=== PATIENT | female | born 1980 | race Caucasian/White ===

== ENCOUNTER 2017-02-18 02:50 | Observation (INO) | payer OTHER ==
[~2017-02-18] VITALS: Ht 165.1 cm; Wt 66.6 kg
[~2017-02-18 02:50] MED LIST: Feosol PO; MOTRIN800 MG PO; Motrin PO; NOHOMEMEDS; Percocet 5/325,Endoc PO
[2017-02-18 03:50] LABS: HEMATOCRIT 43.7 % (36.0-46.0); MCH 31.3 PG (29.0-34.0); MEAN PLAT.VOLUME 11.6 uM^3 (9.5-12.4); PLATELET COUNT 198 K/uL (156-360); RBC DIS.WIDTH-CV 14.7 % (11.8-14.6); RBC DIS.WIDTH-SD 51.4 % (39-53); WHITE BLOOD COUNT 11.2 K/uL (4.1-10.2)
[2017-02-18 04:03] LABS: CHLORIDE 103 mEq/L (99-109); POTASSIUM 3.2 mEq/L (3.7-5.4); SODIUM 138 mEq/L (136-147)
[2017-02-18 04:06] LABS: GLUCOSE 136 mg/dL (70-99)
[2017-02-18 04:07] LABS: ANION GAP 12 MEQ/L (2-14)
[2017-02-18 04:08] LABS: TOTAL BILIRUBIN 0.5 mg/dL (0.0-1.0)
[2017-02-18 04:09] LABS: ALKALINE PHOSPHATASE 63 IU/L (3-129)
[2017-02-18 04:10] LABS: GFR ESTIMATE (CALCULATED) > 59 mL/min/
[2017-02-18 04:11] LABS: DIRECT BILIRUBIN 0.2 mg/dL (0.0-0.3); UREA NITROGEN (BUN) 17 mg/dL (9-23)
[2017-02-18 04:24] LABS: QUANTITATIVE HCG < 4.0 MIU/ML
[2017-02-18 05:23] LABS: ADD MIUA? YES; BILIRUBIN NEGATIVE; BLOOD MODERATE; COLOR YELLOW ((YELLOW)); GLUCOSE (STRIP) NEGATIVE; KETONES 20; LEUKOCYTES NEGATIVE; NITRITE NEGATIVE; PROTEIN (STRIP) NEGATIVE; SPECIFIC GRAVITY 1.024 (1.000-1.030); UROBILINOGEN 0.2 MG/DL (0.2-1.0)
[2017-02-18 05:55] LABS: AMORPHOUS PHOSPHATE CRYSTALS 3+; BACTERIA NONE SEEN /HPF; CASTS NONE SEEN /LPF; CRYSTALS PRESENT; EPITHELIAL CELLS RARE /HPF; MUCUS NONE SEEN /LPF; RED BLOOD CELLS RARE /HPF (0-5); UCUL ADDED? NO; WHITE BLOOD CELLS RARE /HPF (0-5)
[2017-02-18] MEDS ORDERED: DAILY VALUE1 EACH PO (08:51)
[2017-02-18] MEDS ORDERED: MELATONIN10 M1 PO (08:51)
[2017-02-18 11:47] VITALS: BP 125/26
[2017-02-18 16:30] VITALS: BP 121/65
[2017-02-18 19:56] VITALS: BP 121/79
[2017-02-18 23:23] VITALS: BP 113/70
[2017-02-19 03:25] VITALS: BP 110/58
[2017-02-19 07:39] VITALS: BP 128/80
[2017-02-19 07:55] LABS: EOSINOPHIL (%) 0.1 % (0-5); HEMATOCRIT 42.1 % (36.0-46.0); IMMATURE GRANULOCYTE (%) 0.4 % (0.0-0.7); IMMATURE GRANULOCYTE COUNT 0.1 K/uL; INSTRUMENT ABS NEUTROPHIL CT 11.5 K/uL; LYMPHOCYTE COUNT 1.3 K/uL (1.0-2.8); MCH 31.1 PG (29.0-34.0); MCHC 31.8 G/DL (30.0-36.0); MCV 97.7 FL (83-99); MEAN PLAT.VOLUME 12.1 uM^3 (9.5-12.4); MONOCYTE (%) 7.2 % (3-12); NEUTROPHIL (%) 83.1 % (45-76); NEUTROPHIL COUNT 11.5 K/uL (1.8-6.4); PLATELET COUNT 222 K/uL (156-360); RBC DIS.WIDTH-CV 15.1 % (11.8-14.6); RBC DIS.WIDTH-SD 54.8 % (39-53); RED BLOOD COUNT 4.31 M/uL (3.80-5.20); WHITE BLOOD COUNT 13.8 K/uL (4.1-10.2)
[2017-02-19 08:14] LABS: ALKALINE PHOSPHATASE 54 IU/L (3-129); ANION GAP 10 MEQ/L (2-14); CHLORIDE 105 MEQ/L (99-109); GFR ESTIMATE (CALCULATED) > 59 mL/min/; POTASSIUM 3.5 MEQ/L (3.7-5.4); SAMPLE HEMOLYSIS CHECK 0; SAMPLE ICTERIC CHECK 0; SAMPLE LIPEMIA CHECK 0; SODIUM 140 MEQ/L (136-147); TOTAL BILIRUBIN 0.5 MG/DL (0.0-1.0); UREA NITROGEN (BUN) 5 mg/dL (9-23)
[2017-02-19 08:15] LABS: GLUCOSE 101 mg/dL (70-99)
[2017-02-19] MEDS ORDERED: NORCO 5/3251 TABLET PO (10:21)
[2017-02-19 12:15] VITALS: BP 126/81
== END 2017-02-19 14:30 | disposition home or self-care (01) ==
LOC: EME 02:50 → EDOF 10:10 → 2EAST 10:10 → EDOF 10:10 → 2EAST 11:18
PROVIDERS: Surgery
PROC: 0FT44ZZ Resection of Gallbladder, Percutaneous Endoscopic Approach (ICD-10-PCS; principal; 2017-02-18)
DX: K80.00 Calculus of gallbladder with acute cholecystitis without obstruction (principal); F17.210 Nicotine dependence, cigarettes, uncomplicated
CPT/HCPCS: 74177; 76705; 80053; 81003; 82248; 83735; 84100; 84702; 85025; 85027; 88304; 93005; 94799; 99281; 99285; C1769; G0378; J0330; J1100; J1170; J1650; J2175; J2250; J2270; J2405; J2543; J2710; J3010; J7030; J7050; J7120; S0028